=== PATIENT | male | born 1950 | race Caucasian/White ===

== ENCOUNTER → 2022-04-03 10:12 | Outpatient (CLI) | payer MEDICARE, SELFPAY ==
[2022-04-03 10:20] LABS: Microscopic, Urine URINE MICROSCOPIC (MICROSCOPIC)
[2022-04-03 14:29] LABS: Appearance,Urine CLEAR (Clear); Bilirubin,Urine Negative (Negative); Blood, Urine Negative (Negative); Color,Urine YELLOW (Yellow); Glucose,Urine (UA) 3+ (Negative); Ketones,Urine TRACE (Negative); Leukocyte Esterase,Urine Negative (Negative); Nitrate,Urine Negative (Negative); PH,Urine 5.5 (5.0-8.5); Protein,Urine Negative (Negative); Specific Gravity, Urine 1.025 (1.005-1.030); Urobilinogen,Urine 0.2 EU/dl (0.2)
[2022-04-03 14:30] LABS: Basophils # 0.1 K/mm3 (0-0.2); Basophils % 1.2 % (0.1-2.0); Eosinophils # 0.1 K/mm3 (0.0-0.4); Eosinophils % 1.6 % (0.1-12.0); Hematocrit 46.2 % (42.0-52.0); Hemoglobin 14.1 g/dL (14.1-18.0); Lymphocytes # 1.7 K/mm3 (0.7-4.5); Lymphocytes % 29.5 % (10-50); Mean Corpuscular HGB Conc 30.4 g/dL (31.8-35.4); Mean Corpuscular Hemoglobin 27.8 pg (27.0-31.2); Mean Corpuscular Volume 91.6 fl (80-94); Mean Platelet Volume 10.3 fl (7.4-10.4); Monocytes # 0.5 K/mm3 (0.1-1.0); Monocytes % 8.9 % (1.7-9.3); Neutrophils # 3.4 K/mm3 (1.8-7.8); Neutrophils % 58.9 % (37.0-80.0); Platelet Count 215 K/mm3 (142-424); Red Blood Count 5.05 M/mm3 (4.60-6.20); Red Cell Distribution Width 14.1 % (11.5-17.5); White Blood Count 5.7 K/mm3 (4.8-10.8)
[2022-04-03 14:37] LABS: Alanine Aminotransferase 27 U/L (12-78); Albumin Level 4.4 g/dl (3.5-5.0); Albumin/Globulin Ratio 1.8 (1.1-1.8); Alkaline Phosphatase 61 U/L (38-126); Anion Gap 14.9 mEq/L (5-15); Aspartate Amino Transferase 31 U/L (17-59); Bilirubin,Total 0.3 mg/dl (0.2-1.3); Blood Urea Nitrogen 17 mg/dl (9-20); Calcium 9.2 mg/dl (8.4-10.2); Carbon Dioxide 23 mmol/L (22.0-30.0); Chloride 103 mmol/L (98-107); Chol/HDL Ratio 3.2 (1-3.5); Cholesterol 162 mg/dl (140-200); Estimated Glomerular Filt Rate 83 ml/min (>60); GFR (African American) 101 ML/MIN (>60); Globulin 2.4 g/dL (1.3-3.2); Glucose 187 mg/dl (74-100); HDL Cholesterol 50 mg/dl (40-60); Potassium 4.9 mmoL/L (3.5-5.1); Sodium 136 mmol/L (136-145); Total Protein,Serum 6.8 g/dl (6.3-8.2); Triglycerides 318 mg/dl (30-150); VLDL Cholesterol 64 mg/dL (0-40)
[2022-04-03 14:42] LABS: Bacteria,Urine Trace /lpf
[2022-04-03 15:08] LABS: Thyroid Stimulating Hormone 3.36 uIU/mL (0.465-4.68)
[2022-04-03 15:17] LABS: Hemoglobin A1C 8.6 % (4.0-6.0)
[2022-04-06 08:20] LABS: Direct LDL Cholesterol 72 mg/dL (100-129)
== END ==
PROVIDERS: PCP Family Medicine; Visit Provider Family Medicine
DX: I10 Essential (primary) hypertension (principal); E11.65 Type 2 diabetes mellitus with hyperglycemia; E78.2 Mixed hyperlipidemia
CPT/HCPCS: 36415; 80053; 80061; 81001; 83036; 84443; 85025

== ENCOUNTER 2022-06-19 10:37 | Emergency (ER) | payer MEDICARE, SELFPAY ==
[2022-06-19 12:46] VITALS: BP 121/65; PULSE 62; RESP 19; TEMP 37; O2SAT 96; BMI 34.9
--- NOTE | 2022-06-19 12:59 | EXP.UTC ---
Discharge Plan Disposition Patient Disposition: Home, Self-Care Condition: Good Prescriptions Prescriptions: New doxycycline hyclate 100 mg tablet 100 mg PO BID Qty: 14 0RF benzonatate 100 mg capsule 100 mg PO TID PRN (Reason: cough) Qty: 30 0RF No Action bisoprolol fumarate 10 mg tablet 10 mg PO DAILY amlodipine-benazepril 5-10 mg capsule 1 cap PO DAILY trazodone 100 mg tablet 100 mg PO DAILY paroxetine HCl 40 mg tablet 40 mg PO DAILY metformin 500 mg tablet extended release 24 hr 500 mg PO DAILY rosuvastatin 40 mg tablet 40 mg PO DAILY Referrals Follow up/Referrals: Sarah Guo [Primary Care Provider] - See instructions Activity Restrictions/Add. Instructions Additional Instructions/Restrictions: *Monitor Temp, Over the counter Motrin or Tylenol as directed/as needed Tylenol every 4 hours and Motrin every 6 hours (as long as your family doctor has told you that you can take it) for fever or pain. and straight to ER if unable to lower temp less than 101.0 after medication given *Warm salt water gargles may help to soothe the throat *Throat Lozenges? *Warm fluids like tea with honey may help to soothe the throat? *Sleep elevated *Humidifier/Vaporizer Follow up IMMEDIATELY for new or worsening symptoms or no Noticeable improvement over the next 48-72 hours. 911 for difficulty breathing or swallowing Clinical Impressions Clinical Impression: Sinusitis, Bronchitis Instructions Patient Instructions: Sinusitis, DI for Sinusitis Discharge ED Provider: Mellissa Cornell [facility] General Stated complaint: Cough, Sore throat Mode of Arrival: Ambulatory Source of Information: Patient Limitations: No Limitations Time Seen by Provider: 06/19/22 12:59 Description of Symptoms (Recalled from Triage Doc. by RN): pt comes in with c/o cough, chest congestion, sinus pressure, sinus drainage for 3 days. HEENT Symptoms (Recalled from RN notes): Yes Resp Symptoms (Recalled from RN notes): Yes Skin Symptoms (Recalled from RN notes): No MS Symptoms (Recalled from RN notes): No Functional Status (Recalled from RN notes): n/a History of Present Illness Provider Complaint: Patient states that he has been having cough, sinus congestion and pressure and sore scratchy throat for about 3 days that has continued to get worse States that he feels like it is moving into his chest and wanted to catch it before it got too bad Related Data Home Medications Medication Instructions Recorded Confirmed amlodipine 5 mg-benazepril 10 mg 1 cap PO DAILY High blood pressure 06/19/22 06/19/22 capsule bisoprolol fumarate 10 mg tablet 10 mg PO DAILY Heart disease 06/19/22 06/19/22 metformin 500 mg tablet,extended 500 mg PO DAILY Diabetes 06/19/22 06/19/22 release 24 hr paroxetine HCl 40 mg tablet 40 mg PO DAILY Anxiety 06/19/22 06/19/22 rosuvastatin 40 mg tablet 40 mg PO DAILY Cholesterol 06/19/22 06/19/22 trazodone 100 mg tablet 100 mg PO DAILY Insomnia 06/19/22 06/19/22 Previous Rx's Medication Instructions Recorded benzonatate 100 mg capsule 100 mg PO TID PRN cough #30 caps 06/19/22 doxycycline hyclate 100 mg tablet 100 mg PO BID #14 tabs 06/19/22 Allergies Allergy/AdvReac Type Severity Reaction Status Date / Time enoxaparin [From Lovenox] Allergy Verified 06/19/22 12:48 Worker's Comp Is this a Worker's Comp case?: No PFSH PFSH Social History Smoking Status: Unknown if ever smoked alcohol intake: never current occupational status: retired Travel in the last 8 weeks: None ROS Obtained: Yes All systems reviewed & no additional complaints except as documented and Yes Systems reviewed as appropriate & no additional complaints except as documented Constitutional Constitutional: Reports system reviewed and no additional complaints, except as documented and Reports as per HPI ENT Ears, Nose, Mouth, and Throat: Reports system reviewed an
[2022-06-19 13:34] VITALS: BP 121/65; PULSE 62; RESP 19; TEMP 37
== END 2022-06-19 13:38 | disposition home or self-care (01) ==
PROVIDERS: Emergency Provider Nurse Practitioner; PCP Family Medicine
DX: J40 Bronchitis, not specified as acute or chronic (principal); J32.9 Chronic sinusitis, unspecified
CPT/HCPCS: 96372; 99212; G0463; J0561

== ENCOUNTER 2022-07-30 12:46 | Emergency (ER) | payer MEDICARE, SELFPAY ==
[2022-07-30 14:50] VITALS: BP 131/78; PULSE 68; RESP 18; TEMP 36.7; O2SAT 96; BMI 35.2
--- NOTE | 2022-07-30 15:08 | EXP.UTC ---
Discharge Plan Disposition Patient Disposition: Home, Self-Care Condition: Good Prescriptions Prescriptions: New doxycycline hyclate 100 mg capsule 100 mg PO BID 10 Days Qty: 20 0RF benzonatate 100 mg capsule 100 mg PO TID PRN (Reason: cough) Qty: 15 0RF No Action bisoprolol fumarate 10 mg tablet 10 mg PO DAILY amlodipine-benazepril 5-10 mg capsule 1 cap PO DAILY trazodone 100 mg tablet 100 mg PO DAILY paroxetine HCl 40 mg tablet 40 mg PO DAILY metformin 500 mg tablet extended release 24 hr 500 mg PO DAILY rosuvastatin 40 mg tablet 40 mg PO DAILY doxycycline hyclate 100 mg tablet 100 mg PO BID Qty: 14 0RF benzonatate 100 mg capsule 100 mg PO TID PRN (Reason: cough) Qty: 30 0RF Referrals Follow up/Referrals: Sarah Guo [Primary Care Provider] - See instructions Activity Restrictions/Add. Instructions Additional Instructions/Restrictions: *Monitor Temp, Over the counter Motrin or Tylenol as directed/as needed Tylenol every 4 hours and Motrin every 6 hours (as long as your family doctor has told you that you can take it) for fever or pain. and straight to ER if unable to lower temp less than 101.0 after medication given *Warm salt water gargles may help to soothe the throat *Throat Lozenges? *Warm fluids like tea with honey may help to soothe the throat? *Sleep elevated *Humidifier/Vaporizer Follow up IMMEDIATELY for new or worsening symptoms or no Noticeable improvement over the next 48-72 hours. 911 for difficulty breathing or swallowing Clinical Impressions Clinical Impression: Sinusitis Instructions Patient Instructions: Sinusitis, DI for Sinusitis Discharge ED Provider: Mellissa Cornell [facility] [place] HPI General Stated complaint: head congestion Mode of Arrival: Ambulatory Source of Information: Patient Limitations: No Limitations Time Seen by Provider: 07/30/22 15:08 Description of Symptoms (Recalled from Triage Doc. by RN): PATIENT C/O SINUS PRESSURE, COUGH AND CONGESTION X 3 DAYS HEENT Symptoms (Recalled from RN notes): Yes Resp Symptoms (Recalled from RN notes): Yes Skin Symptoms (Recalled from RN notes): No MS Symptoms (Recalled from RN notes): No Functional Status (Recalled from RN notes): WNL History of Present Illness Provider Complaint: Patient states that he has been having cough, sinus pain and pressure along with sore throat for several days State that pressure behind his eyes is getting worse and he knew he needed some antibiotics to clear it up like last time Related Data Home Medications Medication Instructions Recorded Confirmed amlodipine 5 mg-benazepril 10 mg 1 cap PO DAILY High blood pressure 06/19/22 06/19/22 capsule bisoprolol fumarate 10 mg tablet 10 mg PO DAILY Heart disease 06/19/22 06/19/22 metformin 500 mg tablet,extended 500 mg PO DAILY Diabetes 06/19/22 06/19/22 release 24 hr paroxetine HCl 40 mg tablet 40 mg PO DAILY Anxiety 06/19/22 06/19/22 rosuvastatin 40 mg tablet 40 mg PO DAILY Cholesterol 06/19/22 06/19/22 trazodone 100 mg tablet 100 mg PO DAILY Insomnia 06/19/22 06/19/22 Previous Rx's Medication Instructions Recorded benzonatate 100 mg capsule 100 mg PO TID PRN cough #30 caps 06/19/22 doxycycline hyclate 100 mg tablet 100 mg PO BID #14 tabs 06/19/22 benzonatate 100 mg capsule 100 mg PO TID PRN cough #15 caps 07/30/22 doxycycline hyclate 100 mg capsule 100 mg PO BID 10 days #20 caps 07/30/22 Allergies Allergy/AdvReac Type Severity Reaction Status Date / Time enoxaparin [From Lovenox] Allergy Verified 06/19/22 12:48 Worker's Comp Is this a Worker's Comp case?: No [facility] Disclaimer: The information contained in this section may have been updated after the patient was seen, as this information can be updated by other users. Medical History (Updated 07/30/22 @ 15:17 by Mellissa Cornell APRN) Diabetes mellitus, type 2 Hyperlipidemia Hypertension S
[2022-07-30 15:21] VITALS: BP 131/78; PULSE 68; RESP 18; TEMP 36.7; O2SAT 96
== END 2022-07-30 15:39 | disposition home or self-care (01) ==
PROVIDERS: Emergency Provider Nurse Practitioner; PCP Family Medicine
DX: J32.9 Chronic sinusitis, unspecified (principal)
CPT/HCPCS: 96372; 99212; G0463; J0561

== ENCOUNTER 2023-03-21 11:31 | Emergency (ER) | payer MEDICARE, SELFPAY ==
--- NOTE | 2023-03-21 11:37 | XR_ITS ---
PROCEDURE INFORMATION: Exam: XR Left Hand Exam date and time: 03/21/2023 11:40 AM Age: 72 years old Clinical indication: Injury or trauma; Fall; Blunt trauma (contusions or hematomas); Hand; Left TECHNIQUE: Imaging protocol: Radiologic exam of the left hand. Views: 3 or more views. COMPARISON: No relevant prior studies available. FINDINGS: Bones/joints: Osseous structures are intact. No fracture or malalignment. Visualized joint surfaces are preserved. Soft tissues: Unremarkable. IMPRESSION: Negative exam. No acute bony abnormalities.
[2023-03-21 11:50] VITALS: BP 134/65; PULSE 62; RESP 18; TEMP 36.7; O2SAT 98; BMI 33.4
--- NOTE | 2023-03-21 12:07 | EXP.UTC ---
Discharge Plan Disposition Patient Disposition: Home, Self-Care Condition: Good Prescriptions Prescriptions: No Action doxycycline hyclate 100 mg capsule 100 mg PO BID 10 Days Qty: 20 0RF benzonatate 100 mg capsule 100 mg PO TID PRN (Reason: cough) Qty: 15 0RF bisoprolol fumarate 10 mg tablet 10 mg PO DAILY amlodipine-benazepril 5-10 mg capsule 1 cap PO DAILY trazodone 100 mg tablet 100 mg PO DAILY paroxetine HCl 40 mg tablet 40 mg PO DAILY metformin 500 mg tablet extended release 24 hr 500 mg PO DAILY rosuvastatin 40 mg tablet 40 mg PO DAILY doxycycline hyclate 100 mg tablet 100 mg PO BID Qty: 14 0RF benzonatate 100 mg capsule 100 mg PO TID PRN (Reason: cough) Qty: 30 0RF Referrals Follow up/Referrals: Sarah Guo [Primary Care Provider] - See instructions Activity Restrictions/Add. Instructions Additional Instructions/Restrictions: will call with x-ray results. Clinical Impressions Clinical Impression: Hand pain, left Instructions Patient Instructions: DI for Hand Pain Discharge ED Provider: Akua Bermudez [facility] General Stated complaint: [id number] left hand pain, home accident Time Seen by Provider: 03/21/23 12:07 History of Present Illness Provider Complaint: Pt relates that he fell on the edge of his sidewalk and hurt his left hand 2 weeks ago. He states that he thought the pain would subside but continues to have hand pain on the outer aspect of his hand with pressure and while he is trying to fish. Related Data Home Medications Medication Instructions Recorded Confirmed amlodipine 5 mg-benazepril 10 mg 1 cap PO DAILY High blood pressure 06/19/22 06/19/22 capsule bisoprolol fumarate 10 mg tablet 10 mg PO DAILY Heart disease 06/19/22 06/19/22 metformin 500 mg tablet,extended 500 mg PO DAILY Diabetes 06/19/22 06/19/22 release 24 hr paroxetine HCl 40 mg tablet 40 mg PO DAILY Anxiety 06/19/22 06/19/22 rosuvastatin 40 mg tablet 40 mg PO DAILY Cholesterol 06/19/22 06/19/22 trazodone 100 mg tablet 100 mg PO DAILY Insomnia 06/19/22 06/19/22 Previous Rx's Medication Instructions Recorded benzonatate 100 mg capsule 100 mg PO TID PRN cough #30 caps 06/19/22 doxycycline hyclate 100 mg tablet 100 mg PO BID #14 tabs 06/19/22 benzonatate 100 mg capsule 100 mg PO TID PRN cough #15 caps 07/30/22 doxycycline hyclate 100 mg capsule 100 mg PO BID 10 days #20 caps 07/30/22 Allergies Allergy/AdvReac Type Severity Reaction Status Date / Time enoxaparin [From Lovenox] Allergy Verified 06/19/22 12:48 [facility] Disclaimer: The information contained in this section may have been updated after the patient was seen, as this information can be updated by other users. Medical History (Updated 03/21/23 @ 13:30 by Akua Bermudez APRN) Diabetes mellitus, type 2 Hyperlipidemia Hypertension Surgical History (Updated 07/30/22 @ 14:57 by Shelby Skinner RN) History of hernia repair History of open heart surgery History of right heart catheterization (RHC) History of tonsillectomy Social History (Updated 07/30/22 @ 14:58 by Shelby Skinner RN) Smoking Status: Unknown if ever smoked alcohol intake: never current occupational status: retired Travel in the last 8 weeks: None ROS Obtained: Yes All systems reviewed & no additional complaints except as documented Constitutional Constitutional: Reports system reviewed and no additional complaints, except as documented Eyes Eyes: Reports system reviewed and no additional complaints, except as documented ENT Ears, Nose, Mouth, and Throat: Reports system reviewed and no additional complaints, except as documented Cardiovascular Cardiovascular: Reports system reviewed and no additional complaints, except as documented Respiratory Respiratory: Reports system reviewed and no additional complaints, except as documented Gastrointestinal Gastrointestingal: Reports syst
[2023-03-21 13:29] VITALS: BP 134/65; PULSE 62; RESP 18; TEMP 36.7; O2SAT 98
== END 2023-03-21 13:34 | disposition home or self-care (01) ==
PROVIDERS: Emergency Provider Nurse Practitioner Family; PCP Family Medicine
DX: M79.642 Pain in left hand (principal); E11.9 Type 2 diabetes mellitus without complications; I10 Essential (primary) hypertension; E78.5 Hyperlipidemia, unspecified; Z79.84 Long term (current) use of oral hypoglycemic drugs; W10.1XXA Fall (on)(from) sidewalk curb, initial encounter
CPT/HCPCS: 73130; 99212; 99214; G0463

== ENCOUNTER 2024-04-19 18:48 | Emergency (ER) | payer MEDICARE, SELFPAY ==
[2024-04-19 18:49] VITALS: BP 139/68; PULSE 75; RESP 18; TEMP 36.7; O2SAT 92; BMI 35.4
--- NOTE | 2024-04-19 19:14 | HMH.EDGENADL ---
Discharge Plan Disposition Patient Disposition: Home, Self-Care Condition: Good Prescriptions Prescriptions: No Action doxycycline hyclate 100 mg capsule 100 mg PO BID 10 Days Qty: 20 0RF benzonatate 100 mg capsule 100 mg PO TID PRN (Reason: cough) Qty: 15 0RF bisoprolol fumarate 10 mg tablet 10 mg PO DAILY amlodipine-benazepril 5-10 mg capsule 1 cap PO DAILY trazodone 100 mg tablet 100 mg PO DAILY paroxetine HCl 40 mg tablet 40 mg PO DAILY metformin 500 mg tablet extended release 24 hr 500 mg PO DAILY rosuvastatin 40 mg tablet 40 mg PO DAILY doxycycline hyclate 100 mg tablet 100 mg PO BID Qty: 14 0RF benzonatate 100 mg capsule 100 mg PO TID PRN (Reason: cough) Qty: 30 0RF Referrals Follow up/Referrals: Sarah Guo [Primary Care Provider] - See instructions Activity Restrictions/Add. Instructions Additional Instructions/Restrictions: Follow-up with your PCP for further evaluation of your chest and abdomen pain. You may need a HIDA scan and or an upper EGD or both. Additionally you had a lung nodule found incidentally on your scan please notify your PCP so that you can have that monitored over time. Return to ER for any worsening signs or symptoms as needed. Clinical Impressions Clinical Impression: Abdominal pain, acute, Lung nodule Instructions Patient Instructions: DI for Acute Abdominal Pain Print Language Print Language: Estonian Discharge ED Provider: González Ellison General Adult HPI <BERTHA Solitario - Last Filed: 04/19/24 22:07> General Chief complaint: PAIN Stated complaint: right up abdomin pain going to back Time Seen by Provider: 04/19/24 19:14 History of Present Illness HPI narrative: Patient presents for evaluation of right-sided chest and abdomen pain. Patient reports a 4-week history of constant right-sided chest and abdomen pain. He does have a significant cardiovascular history status post open heart surgery, insulin-dependent type 2 diabetes mellitus. Patient reports no relation to food and aggravating or relieving his discomfort. He denies fever chills hemoptysis hematochezia melena nausea vomiting diarrhea. He was working in his garage today and had a significant increase in the intensity of his pain hence he presented for evaluation. Related Data Home Medications ?Medication ?Instructions ?Recorded ?Confirmed amlodipine 5 mg-benazepril 10 mg 1 cap PO DAILY High blood pressure 06/19/22 06/19/22 capsule bisoprolol fumarate 10 mg tablet 10 mg PO DAILY Heart disease 06/19/22 06/19/22 metformin 500 mg tablet,extended 500 mg PO DAILY Diabetes 06/19/22 06/19/22 release 24 hr paroxetine HCl 40 mg tablet 40 mg PO DAILY Anxiety 06/19/22 06/19/22 rosuvastatin 40 mg tablet 40 mg PO DAILY Cholesterol 06/19/22 06/19/22 trazodone 100 mg tablet 100 mg PO DAILY Insomnia 06/19/22 06/19/22 Previous Rx's ?Medication ?Instructions ?Recorded benzonatate 100 mg capsule 100 mg PO TID PRN cough #30 caps 06/19/22 doxycycline hyclate 100 mg tablet 100 mg PO BID #14 tabs 06/19/22 benzonatate 100 mg capsule 100 mg PO TID PRN cough #15 caps 07/30/22 doxycycline hyclate 100 mg capsule 100 mg PO BID 10 days #20 caps 07/30/22 Allergies Allergy/AdvReac Type Severity Reaction Status Date / Time enoxaparin [From Lovenox] Allergy Verified 04/19/24 19:30 [facility] <BERTHA Solitario - Last Filed: 04/19/24 22:07> [facility] Disclaimer: The information contained in this section may have been updated after the patient was seen, as this information can be updated by other users. Medical History (Updated 04/19/24 @ 22:00 by BERTHA Solitario) Diabetes mellitus, type 2 Hyperlipidemia Hypertension Surgical History (Updated 07/30/22 @ 14:57 by Shelby Skinner RN) History of tonsillectomy History of hernia repair History of open heart surgery History of right heart catheterization (RHC) Social History (Updated 07/30/22 @ 14:5
--- NOTE | 2024-04-19 19:27 | ECG_ITS ---
APPROVED REPORT Exam: Resting ECG HR:70 bpm ECG Measurements Heart Rate 70 AXES NC 153 P 47 QRSd 102 QRS 77 QT 378 T 93 QTc 399 Conclusion SINUS RHYTHM MINIMAL ST DEPRESSION [0.025+ mV ST DEPRESSION] BORDERLINE ECG Electronically signed by : DEJA HAMM, 04/20/2024 15:09:35
[2024-04-19 19:31] VITALS: BP 123/80; PULSE 75; O2SAT 95
--- NOTE | 2024-04-19 19:33 | CT_ITS ---
PROCEDURE INFORMATION: Exam: CTA Chest With Contrast Exam date and time: 04/19/2024 8:17 PM Age: 73 years old Clinical indication: Other: Right sided thoracoabdominal pain TECHNIQUE: Imaging protocol: Computed tomographic angiography of the chest with contrast. Exam focused on the arteries. 3D rendering (Not supervised by radiologist): MIP and/or 3D reconstructed images were created by the technologist. Radiation optimization: All CT scans at this facility use at least one of these dose optimization techniques: automated exposure control; mA and/or kV adjustment per patient size (includes targeted exams where dose is matched to clinical indication); or iterative reconstruction. Contrast material: ISOUVE 370; Contrast volume: 70 ml; Contrast route: INTRAVENOUS (IV); COMPARISON: CT ABDOMEN PELVIS W CON 04/19/2024 8:17 PM FINDINGS: Limitations: Mild motion artifact could obscure small peripheral pulmonary emboli. Pulmonary arteries: No visible pulmonary emboli. Normal caliber pulmonary arteries. Aorta: Mild thoracic aortic atherosclerotic disease without aneurysm or dissection. Lungs: Left lower lobe calcified granuloma. 2 mm right lung apex noncalcified nodule. Mild scattered bilateral atelectasis. No consolidation. Pleural spaces: Unremarkable. No pneumothorax. No pleural effusion. Heart: Unremarkable. No cardiomegaly. No pericardial effusion. Coronary arteries: Severely calcified [place] moore[place] coronary arteries. Status post CABG. Lymph nodes: Calcified right paratracheal left hilar lymph nodes. No adenopathy. Bones/joints: Status post sternotomy. Soft tissues: Unremarkable. IMPRESSION: 1. Mild motion artifact could obscure small peripheral pulmonary emboli. 2. No visible pulmonary emboli. 3. Status post CABG. 4. Prior granulomatous disease. 5. 2 mm noncalcified nodule at the right lung apex. For patients at low risk (minimal or absent history of smoking and of other known risk factors), no routine follow-up is indicated. For patients at high risk (history of smoking or of other known risk factors), consider optional CT Chest at 12 months. (Reference: Pranay) REFERENCES: Pranay Neal et al. Guidelines for Management of Incidental Pulmonary Nodules Detected on CT Images: From the Fleischner Society 2017. Radiology. 2017;284(1):228-243.
--- NOTE | 2024-04-19 19:33 | CT_ITS ---
PROCEDURE INFORMATION: Exam: CT Abdomen And Pelvis With Contrast Exam date and time: 04/19/2024 8:17 PM Age: 73 years old Clinical indication: Abdominal pain; Additional info: Right-sided rectal abdominal pain TECHNIQUE: Imaging protocol: Computed tomography of the abdomen and pelvis with contrast. 3D rendering (Not supervised by radiologist): MIP and/or 3D reconstructed images were created by the technologist. Radiation optimization: All CT scans at this facility use at least one of these dose optimization techniques: automated exposure control; mA and/or kV adjustment per patient size (includes targeted exams where dose is matched to clinical indication); or iterative reconstruction. Contrast material: ISOVUE; Contrast volume: 70 ml; Contrast route: IV; COMPARISON: CT ANGIO CHEST PE PROTOCOL 04/19/2024 8:17 PM FINDINGS: Liver: Mild hepatic steatosis with hepatomegaly. No liver lesions. Gallbladder and biliary ducts: Normal. No calcified stones. No ductal dilation. Pancreas: Normal. No ductal dilation. Spleen: Normal. No splenomegaly. Adrenal glands: 2.2 cm right adrenal nodule. No left adrenal nodules. Kidneys and ureters: 2.5 cm cyst with minimal thin rim calcification at the upper pole of the right kidney. 2.4 cm simple cyst in the medial lower pole of the right kidney. Normal-appearing left kidney. Stomach and bowel: No dilated or thickened bowel loops. Small duodenal diverticulum arising superiorly from the 3rd portion of the duodenum. Appendix: No evidence of appendicitis. Intraperitoneal space: Unremarkable. No free air. No significant fluid collection. Vasculature: Moderate atherosclerotic disease. Mildly ectatic infrarenal abdominal aorta measuring up to 2.6 cm in diameter. Lymph nodes: Unremarkable. No enlarged lymph nodes. Urinary bladder: Unremarkable as visualized. Reproductive: Mild prostate enlargement. Bones/joints: Mild lumbar spine dextroscoliosis. [id number] lumbar spine degenerative change. Mild degenerative change of the bilateral hips and sacroiliac joints. Soft tissues: Small fat containing bilateral inguinal hernias. Right lower quadrant anterior abdominal wall subcutaneous fat stranding is likely from medication injection. IMPRESSION: 1. No acute findings. 2. Bosniak I and Bosniak II right renal cysts. No follow-up is needed. 3. 2.2 cm right adrenal nodule. Non-emergent adrenal CT is recommended. (Reference: Marlene) COMMENTS: Consistent with the [employer]'s Incidental Findings Committee white paper (J Am Edelmira Radiol 2018): Any incidental renal lesion less than 1 cm or classified as too small to characterize, or any incidental cystic renal lesion characterized as simple-appearing, is likely benign. No follow-up imaging is recommended for these lesions per consensus recommendations based on imaging criteria. REFERENCES: Marlene LANDIN et al. Management of Incidental Adrenal Masses: A White Paper of the ACR Incidental Findings Committee. J Am Edelmira Radiol. 2017;14(8):5123-8453.
[2024-04-19 19:58] LABS: Albumin Level 4.6 g/dl (3.5-5.0); Basophils # 0.1 K/mm3 (0-0.2); Basophils % 0.9 % (0.1-2.0); Chloride 108 mmol/L (98-107); Eosinophils # 0.2 K/mm3 (0.0-0.4); Eosinophils % 2.7 % (0.1-12.0); Hemoglobin 14.4 g/dL (14.1-18.0); Lymphocytes % 23.9 % (10-50); Mean Corpuscular HGB Conc 32.7 g/dL (31.8-35.4); Mean Corpuscular Hemoglobin 29.9 pg (27.0-31.2); Mean Corpuscular Volume 91.6 fl (80-94); Mean Platelet Volume 8.7 fl (7.4-10.4); Monocytes # 0.6 K/mm3 (0.1-1.0); Monocytes % 6.9 % (1.7-9.3); Neutrophils # 5.6 K/mm3 (1.8-7.8); Neutrophils % 65.6 % (37.0-80.0); Platelet Count 246 K/mm3 (142-424); Red Cell Distribution Width 15.3 % (11.5-17.5); White Blood Count 8.5 K/mm3 (4.8-10.8)
[2024-04-19 19:59] LABS: Potassium 4.3 mmoL/L (3.5-5.1); Sodium 140 mmol/L (136-145)
[2024-04-19 20:00] VITALS: BP 132/72; PULSE 75; O2SAT 96
[2024-04-19 20:01] LABS: Alanine Aminotransferase 35 U/L (12-78); Anion Gap 13.3 mEq/L (5-15); Aspartate Amino Transferase 43 U/L (17-59); Blood Urea Nitrogen 22 mg/dl (9-20); Carbon Dioxide 23 mmol/L (22.0-30.0); Creatinine Clearance Estimated 66 mL/min (50-200); Estimated Glomerular Filt Rate 46 ml/min (>60); GFR (African American) 56 ML/MIN (>60)
[2024-04-19 20:02] LABS: Albumin/Globulin Ratio 1.8 (1.1-1.8); Alkaline Phosphatase 50 U/L (38-126); Bilirubin,Total 0.8 mg/dl (0.2-1.3); Calcium 9.2 mg/dl (8.4-10.2); Globulin 2.6 g/dL (1.3-3.2); Glucose 147 mg/dl (74-100); Lipase 255 U/L (23-300); Magnesium 1.5 mg/dl (1.6-2.3); Total Protein,Serum 7.2 g/dl (6.3-8.2)
[2024-04-19 20:11] LABS: NT Pro Brain Natriuretic Pep. 77.4 pg/mL (0-125)
[2024-04-19 20:15] LABS: Troponin I < 0.01 ng/ml (0.00-0.034)
[2024-04-19 20:58] LABS: Microscopic, Urine URINE MICROSCOPIC (MICROSCOPIC)
[2024-04-19 21:01] LABS: Appearance,Urine CLEAR (Clear); Bilirubin,Urine Negative (Negative); Blood, Urine Negative (Negative); Color,Urine YELLOW (Yellow); Glucose,Urine (UA) TRACE (Negative); Ketones,Urine TRACE (Negative); Leukocyte Esterase,Urine Negative (Negative); Nitrate,Urine Negative (Negative); PH,Urine 5.5 (5.0-8.5); Protein,Urine TRACE (Negative); Specific Gravity, Urine >= 1.030 (1.005-1.030)
[2024-04-19 21:15] LABS: Mucus,Urine Trace /lpf; Squamous Epithelial Cell,Urine Occasional #/hpf (0-5); WBC,Urine Occasional #/hpf (0-3)
[2024-04-19 22:11] VITALS: BP 117/80; PULSE 62; RESP 18; TEMP 36.8; O2SAT 95
== END 2024-04-19 22:12 | disposition home or self-care (01) ==
PROVIDERS: Physician Assistant; Emergency Provider Emergency Medicine; PCP Family Medicine
DX: R07.9 Chest pain, unspecified (principal); R10.9 Unspecified abdominal pain; R91.1 Solitary pulmonary nodule; E11.9 Type 2 diabetes mellitus without complications; E78.5 Hyperlipidemia, unspecified; I10 Essential (primary) hypertension; Z87.891 Personal history of nicotine dependence
CPT/HCPCS: 71275; 74177; 80053; 81001; 83690; 83735; 83880; 84484; 85025; 93005; 96361; 96365; 96375; 99285; J0131; J1885; J3475; J7120; Q9967

== ENCOUNTER 2024-06-06 15:23 | Emergency (ER) | payer MEDICARE, SELFPAY ==
[2024-06-06 16:34] VITALS: BP 99/72; PULSE 56; RESP 18; TEMP 36.8; O2SAT 96; BMI 34.5
--- NOTE | 2024-06-06 16:43 | EXP.UTC ---
Discharge Plan Disposition Patient Disposition: Home, Self-Care Condition: Good Prescriptions Prescriptions: New azithromycin 250 mg tablet See Rx Instructions .ROUTE .COMPLEX Qty: 6 0RF Rx Instructions: For 250 mg dose pack: take 500 mg today (day 1), then 250 mg for 4 days (days 2-5) guaifenesin 400 mg tablet 400 mg PO Q4H PRN (Reason: cough) Qty: 30 0RF No Action bisoprolol fumarate 10 mg tablet 10 mg PO DAILY amlodipine-benazepril 5-10 mg capsule 1 cap PO DAILY trazodone 100 mg tablet 100 mg PO DAILY paroxetine HCl 40 mg tablet 40 mg PO DAILY metformin 500 mg tablet extended release 24 hr 500 mg PO DAILY rosuvastatin 40 mg tablet 40 mg PO DAILY Novolin 70/30 U-100 Insulin 100 unit/mL (70-30) suspension 100 sliding scale dose SQ DAILY Referrals Follow up/Referrals: Provider,Referral, MD [Primary Care Provider] - See instructions Activity Restrictions/Add. Instructions Additional Instructions/Restrictions: Take medication as prescribed. Increase fluids and rest. Follow up with PCP in a week. Return to clinic or go to PCP if symptoms persist or worsen. If you experience shortness of air, go to the ER. Clinical Impressions Clinical Impression: Upper respiratory infection, acute Instructions Patient Instructions: DI for Acute Bronchitis Print Language Print Language: Finnish Discharge ED Provider: Akua Bermudez [facility] General Stated complaint: cough,runny nose,headache Mode of Arrival: Ambulatory Source of Information: Patient Time Seen by Provider: 06/06/24 16:43 Description of Symptoms (Recalled from Triage Doc. by RN): COLD S/S X2 WEEKS, COUGHING, WORSE AT NIGHT AND CAN NOT SLEEP, SINUS DRAINAGE HEENT Symptoms (Recalled from RN notes): Yes Resp Symptoms (Recalled from RN notes): Yes Skin Symptoms (Recalled from RN notes): No MS Symptoms (Recalled from RN notes): No Functional Status (Recalled from RN notes): WNL History of Present Illness Provider Complaint: Pt reports that he has been sick for the last 2 weeks. He states that he started with clear drainage and it is now green. Pt states that he is coughing up green phlegm as well. He states that he is coughing so much that he can hardly sleep at night. Related Data Home Medications ?Medication ?Instructions ?Recorded ?Confirmed amlodipine 5 mg-benazepril 10 mg 1 cap PO DAILY High blood pressure 06/19/22 06/06/24 capsule bisoprolol fumarate 10 mg tablet 10 mg PO DAILY Heart disease 06/19/22 06/06/24 metformin 500 mg tablet,extended 500 mg PO DAILY Diabetes 06/19/22 06/06/24 release 24 hr paroxetine HCl 40 mg tablet 40 mg PO DAILY Anxiety 06/19/22 06/06/24 rosuvastatin 40 mg tablet 40 mg PO DAILY Cholesterol 06/19/22 06/06/24 trazodone 100 mg tablet 100 mg PO DAILY Insomnia 06/19/22 06/06/24 insulin human U-100 NPH-regulr 100 sliding scale dose SQ DAILY 06/06/24 06/06/24 70-30 mix 100 unit/mL subcutaneous susp (Novolin 70/30 U-100 Insulin) Previous Rx's ?Medication ?Instructions ?Recorded azithromycin 250 mg tablet See Rx Instructions PO .COMPLEX #6 06/06/24 tabs guaifenesin 400 mg tablet 400 mg PO Q4H PRN cough #30 tabs 06/06/24 Allergies Allergy/AdvReac Type Severity Reaction Status Date / Time enoxaparin [From Lovenox] Allergy Verified 04/19/24 19:30 Worker's Comp Is this a Worker's Comp case?: No [facility] Disclaimer: The information contained in this section may have been updated after the patient was seen, as this information can be updated by other users. Medical History (Updated 06/06/24 @ 17:02 by Akua Bermudez APRN) Diabetes mellitus, type 2 Hyperlipidemia Hypertension Surgical History (Updated 07/30/22 @ 14:57 by Shelby Skinner RN) History of tonsillectomy History of hernia repair History of open heart surgery History of right heart catheterization (RHC) Social History (Updated 07/30/22 @ 14:58 by Shelby Skinner RN) Smoking Status: Former smoker alcohol intake: never current occupational status: retired Travel in the last 8 weeks: None ROS Obtained: Yes All systems reviewed & no additional complaints except as documented Constitutional Constitutional: Reports system reviewed and no additional complaints, except as documented, Reports headache(s) and Reports malaise Eyes Eyes: Reports system reviewed and no additional complaints, except as documented ENT Ears, Nose, Mouth, and Throat: Reports system reviewed and no additional complaints, except as documented, Reports headache(s), Reports nasal congestion, Reports nasal discharge, Reports sinus pain and Reports sinus pressure Cardiovascular Cardiovascular: Reports system reviewed and no additional complaints, except as documented Respiratory Respiratory: Reports system reviewed and no additional complaints, except as documented, Reports change in phlegm color, Reports chest congestion and Reports cough Gastrointestinal Gastrointestingal: Reports system reviewed and no additional complaints, except as documented Genitourinary Male Genitourinary: Reports system reviewed and no additional complaints, except as documented Musculoskeletal Musculoskeletal: Reports system reviewed and no additional complaints, except as documented Integumentary/Breasts Skin/Breast: Reports system reviewed and no additional complaints, except as documented Neurologic Neurologic: Reports system reviewed and no additional complaints, except as documented and Reports headache(s) Endocrine Endocrine: Reports system reviewed and no additional complaints, except as documented Hematologic/Lymphatic Henatologic/Lymphatic: Reports system reviewed and no additional complaints, except as documented Allergic/Immunologic Allergic/Immunologic: Reports system reviewed and no additional complaints, except as documented Physical Exam General General appearance: alert Comment: ill appearing Head Head exam: atraumatic and normocephalic Eye Eye exam: Present normal appearance ENT ENT exam: Present mucous membranes moist Expanded ENT Exam External ear exam: Present normal external inspection Nose exam: Present sinus tenderness (frontal) Nasal speculum exam: Bilateral: purulent discharge Mouth exam: Present normal external inspection Teeth exam: Present normal inspection Throat exam: Present normal inspection Neck Neck exam: Present normal inspection; Absent lymphadenopathy Chest Chest inspection: Present normal inspection and symmetric chest wall rise Respiratory Respiratory exam: Present other (course sounds throughout) Expanded Respiratory Exam Location: Right: rhonchi and Lower: rhonchi Cardiovascular Cardiovascular exam: Present regular rate and normal rhythm Abdominal Exam Abdominal exam: Present soft and normal bowel sounds Extremities Exam Extremities exam: Present normal inspection Back Exam Back exam: Present normal inspection Neurological Exam Neurological exam: Present alert and oriented X3 Psychiatric Psychiatric exam: Present normal affect and normal mood Skin Skin exam: Present warm, dry and intact Lymphatic Lymphatic Findings: no adenopathy Medical Decision Making Medical Records Screening: Per USPSTF and CDC recommendations, given the prevalence of disease in our region, it is our hospital?s policy to screen for HIV and viral Hepatitis for all patients aged 18 and over and those with ongoing risk factors. Dong Inquiry Pt receiving controlled substance: No Dong was queried for this patient: No Vital Signs: 06/06/24 16:34 Temperature 98.2 F Temperature Source Oral Pulse Rate [Left Brachial] 56 L Respiratory Rate 18 Blood Pressure [Left Arm] 99/72 L Blood Pressure Mean [Left Arm] 81 02 Sat by Pulse Oximetry 96
[2024-06-06] MEDS: LIDOCAINE 1% 5ML PF VIAL IM (17:08)
[2024-06-06] MEDS: cefTRIAXone 1GM VIAL 1 GM IM (17:08)
[2024-06-06] MEDS: DEXAMETHASONE 4MG/ML 1ML VIAL 4 MG IM (17:08)
[2024-06-06 17:16] VITALS: BP 99/72; PULSE 56; RESP 18; TEMP 35.5
== END 2024-06-06 17:24 | disposition home or self-care (01) ==
PROVIDERS: Emergency Provider Nurse Practitioner Family
DX: J06.9 Acute upper respiratory infection, unspecified (principal); R05.8 Other specified cough; R51.9 Headache, unspecified; R09.89 Other specified symptoms and signs involving the circulatory and respiratory systems; R53.81 Other malaise; R09.81 Nasal congestion
CPT/HCPCS: 96372; 99212; G0381; J0696; J1100